=== PATIENT | female | born 1985 | race Caucasian/White ===

== ENCOUNTER 2018-06-14 20:34 | Emergency (ER) | payer MEDICAID ==
[~2018-06-14] VITALS: Ht 152.4 cm; Wt 60.6 kg
[2018-06-15 02:18] VITALS: BP 120/64
== END 2018-06-15 02:04 | disposition home or self-care (01) ==
LOC: ER 20:34
DX: T19.2XXA Foreign body in vulva and vagina, initial encounter (principal); F17.200 Nicotine dependence, unspecified, uncomplicated; Z98.890 Other specified postprocedural states; X58.XXXA Exposure to other specified factors, initial encounter; Y93.89 Activity, other specified; Y92.89 Other specified places as the place of occurrence of the external cause; Y99.8 Other external cause status
CPT/HCPCS: 99284

== ENCOUNTER 2019-03-25 05:24 | Emergency (ER) | payer MEDICAID ==
[~2019-03-25] VITALS: Ht 152.4 cm; Wt 57.0 kg
[2019-03-25 07:03] VITALS: BP 121/82
== END 2019-03-25 07:04 | disposition home or self-care (01) ==
LOC: ER 05:24
DX: T19.2XXA Foreign body in vulva and vagina, initial encounter (principal); Z98.890 Other specified postprocedural states; X58.XXXA Exposure to other specified factors, initial encounter; Y93.89 Activity, other specified; Y92.89 Other specified places as the place of occurrence of the external cause; Y99.8 Other external cause status
CPT/HCPCS: 99281; 99284